=== PATIENT | female | born 1955 | race Caucasian/White ===

== ENCOUNTER 2016-06-09 21:10 | Inpatient (IN) | payer OTHER ==
[2016-06-09] VITALS (48 sets, daily range): BP systolic 132; BP diastolic 72; PULSE 112; TEMP 98; O2SAT 73–100
[~2016-06-09] VITALS: Ht 157.5 cm; Wt 62.3 kg
[2016-06-09] MEDS ORDERED: XANAX .25M0.25 MG/TA PO (21:33)
[2016-06-09] MEDS ORDERED: COZAAR100 MG PO (21:33)
[2016-06-09] MEDS ORDERED: ASPIRIN 81M81 MG/TA2 PO (21:34)
[2016-06-09] MEDS ORDERED: MULTIPLE VITAMI1 CAP PO (21:34)
[2016-06-09 21:54] LABS: BASO % 0.4 % (0.0-2.0); EOS # 0.1 (0.0-0.7); EOS % 1.1 % (0-4.0); GRAN # 4.6 (1.4-6.5); GRAN % 56.7 % (42.2-75.2); LYMPH # 2.8 (1.2-3.4); LYMPH % 34.8 % (20.0-51.0); MEAN CELL VOLUME 79 fl (80.0-100.0); MEAN CORPUSCULAR HGB CONC 30 g/dl (33.0-37.0); MEAN PLATELET VOLUME 9.7 fl (7.4-10.4); MONO # 0.5 (0.1-0.6); MONO % 6.3 % (1.7-9.3); PLATELET COUNT 377 K/mm3 (130-400); REDCELL DISTRIBUTION WIDTH-CV 13.3 % (11.5-14.5); WHITE BLOOD COUNT 8.2 K/mm3 (4.8-10.8)
[2016-06-09 21:58] LABS: HEMATOCRIT 18.9 % (37.0-47.0); HEMOGLOBIN 5.7 g/dl (12.5-16.0); MEAN CORPUSCULAR HEMOGLOBIN 24 pg (27.0-31.0)
[2016-06-09 22:08] LABS: ALANINE AMINOTRANSFERASE 54 U/L (9-52); ALBUMIN 4.2 gm/dL (3.5-5.0); ALKALINE PHOSPHATASE 56 U/L (50-136); ANION GAP 10 mmol/L (7-16); BILIRUBIN,TOTAL 0.6 mg/dL (0.0-1.0); BLOOD UREA NITROGEN 15 mg/dL (7-17); CALCIUM 9.2 mg/dL (8.4-10.2); CARBON DIOXIDE 24 mmol/L (22-30); CHLORIDE 102 mmol/L (98-107); CREATINE KINASE 41 U/L (30-135); CREATININE, serum 0.69 mg/dL (0.52-1.25); GLUCOSE 125 mg/dL (74-106); POTASSIUM 3.7 mmol/L (3.4-5.0); SODIUM 136 mmol/L (137-145)
[2016-06-09 22:22] LABS: TROPONIN-I < 0.012 ng/mL (0.000-0.034)
[2016-06-10] VITALS (1011 sets, daily range): BP systolic 97–139; BP diastolic 53–85; PULSE 86–117; TEMP 97.3–98.9; O2SAT 73–100
[2016-06-10 05:13] LABS: HEMATOCRIT 23.3 % (37.0-47.0)
[2016-06-10 05:15] LABS: HEMOGLOBIN 7.5 g/dl (12.5-16.0)
[2016-06-10 13:15] LABS: HEMATOCRIT 26.9 % (37.0-47.0); HEMOGLOBIN 8.7 g/dl (12.5-16.0)
[2016-06-10 17:12] LABS: HEMATOCRIT 26.7 % (37.0-47.0); HEMOGLOBIN 8.9 g/dl (12.5-16.0)
[2016-06-10 22:51] LABS: HEMATOCRIT 29.7 % (37.0-47.0); HEMOGLOBIN 9.6 g/dl (12.5-16.0)
[2016-06-11] VITALS (118 sets, daily range): BP systolic 115–150; BP diastolic 67–94; PULSE 80–91; TEMP 97.7–98.5; O2SAT 95–100
[2016-06-11 05:55] LABS: MEAN CELL VOLUME 80 fl (80.0-100.0); MEAN CORPUSCULAR HGB CONC 33 g/dl (33.0-37.0); MEAN PLATELET VOLUME 9.2 fl (7.4-10.4); PLATELET COUNT 285 K/mm3 (130-400); RED BLOOD COUNT 3.38 M/mm3 (4.10-5.30); REDCELL DISTRIBUTION WIDTH-CV 13.9 % (11.5-14.5); WHITE BLOOD COUNT 6.3 K/mm3 (4.8-10.8)
[2016-06-11 05:58] LABS: HEMATOCRIT 27.1 % (37.0-47.0); HEMOGLOBIN 8.8 g/dl (12.5-16.0); MEAN CORPUSCULAR HEMOGLOBIN 26 pg (27.0-31.0)
[2016-06-11 06:08] LABS: CALCIUM 8.7 mg/dL (8.4-10.2); CREATININE, serum 0.63 mg/dL (0.52-1.25); POTASSIUM 3.4 mmol/L (3.4-5.0)
[2016-06-11] MEDS ORDERED: PRILOSEC 20MG20 MG PO (16:27)
== END 2016-06-11 18:03 | disposition home or self-care (01) | DRG 812 ==
LOC: COL.ER 21:10 → MEDICAL 22:15 → ICU 22:15 → IMCU 22:15 → MEDICAL 06-11 11:40
PROVIDERS: Emergency Medicine; Family Medicine; Internal Medicine; Internal Medicine Gastroenterology
PROC: 0DJD8ZZ Inspection of Lower Intestinal Tract, Via Natural or Artificial Opening Endoscopic (ICD-10-PCS; principal; 2016-06-11 14:45)
DX: D62 Acute posthemorrhagic anemia (principal); K92.1 Melena; I10 Essential (primary) hypertension; F41.9 Anxiety disorder, unspecified
CPT/HCPCS: 99223-AI; 99239; C9113; J2250; J2405; J3010; J7030; P9016

== ENCOUNTER → 2016-06-13 | Outpatient (CLI) | payer OTHER ==
[~2016-06-13] MED LIST: ASPIRIN 81M81 MG/TA2 PO; COZAAR100 MG PO; MULTIPLE VITAMI1 CAP PO; PRILOSEC 20MG20 MG PO; XANAX .25M0.25 MG/TA PO
== END ==
LOC: COL.VAS 08:00
DX: I08.1 Rheumatic disorders of both mitral and tricuspid valves (principal); R94.39 Abnormal result of other cardiovascular function study

== ENCOUNTER → 2016-10-29 | Outpatient (CLI) | payer OTHER | LOC: MC.RAD 07:00 | DX: Z12.31 Encounter for screening mammogram for malignant neoplasm of breast (principal) ==

== ENCOUNTER 2017-05-24 14:40 | Outpatient (RCR) | payer OTHER | END 2017-07-02 | disposition home or self-care (01) | LOC: COL.CR | DX: Z48.812 Encounter for surgical aftercare following surgery on the circulatory system (principal); Z98.890 Other specified postprocedural states ==

== ENCOUNTER → 2017-10-25 | Outpatient (CLI) | payer OTHER | LOC: COL.VAS 08:00 | DX: G45.8 Other transient cerebral ischemic attacks and related syndromes (principal) ==

== ENCOUNTER → 2017-11-01 | Outpatient (CLI) | payer OTHER | LOC: COL.RAD 07:30 | DX: G45.8 Other transient cerebral ischemic attacks and related syndromes (principal) ==

== ENCOUNTER → 2017-11-26 | Outpatient (CLI) | payer OTHER | LOC: ZCOL.LAB 14:24 | DX: J32.4 Chronic pansinusitis (principal) ==

== ENCOUNTER → 2017-12-16 | Outpatient (CLI) | payer OTHER | LOC: MC.RAD 11-21 08:20 | DX: Z12.31 Encounter for screening mammogram for malignant neoplasm of breast (principal); Z98.890 Other specified postprocedural states ==

== ENCOUNTER → 2018-12-18 | Outpatient (CLI) | payer OTHER | LOC: MC.RAD 06:54 | DX: Z12.31 Encounter for screening mammogram for malignant neoplasm of breast (principal) ==

== ENCOUNTER 2019-01-29 08:00 | Outpatient (RCR) | payer OTHER | END 2019-01-29 14:10 | disposition home or self-care (01) | LOC: MKS.ESL.PT 08:00 | DX: M54.5 Low back pain (principal) ==

== ENCOUNTER → 2019-12-21 | Outpatient (CLI) | payer OTHER | LOC: MC.RAD 07:40 | DX: Z12.31 Encounter for screening mammogram for malignant neoplasm of breast (principal) ==

== ENCOUNTER → 2021-01-09 | Outpatient (CLI) | payer OTHER | LOC: MC.RAD 08:06 | DX: Z12.31 Encounter for screening mammogram for malignant neoplasm of breast (principal) ==